=== PATIENT | male | born 1980 | race Caucasian/White ===

== ENCOUNTER 2021-12-27 12:41 | Emergency (ER) | payer OTHER, SELFPAY ==
[2021-12-27 13:05] VITALS: BP 155/103; PULSE 97; RESP 12; TEMP 36.6; O2SAT 100
[2021-12-27 13:58] LABS: Basophils Percent Auto 0.2 % (0.2-1.2); Eosinophils Absolute Auto 0.5 K/mm3 (0-0.3); Eosinophils Percent Auto 5.7 % (0-4.4); Hematocrit 45.4 % (42.0-52.0); Hemoglobin 14.7 g/dL (14.0-18.0); Immature Granulocyte Absolute 0.02 K/mm3 (0.00-0.031); Immature Granulocyte Percent A 0.2 % (0-0.5); Lymphocytes Absolute Auto 3.09 K/mm3 (0.9-3.2); Lymphocytes Percent Auto 35.3 % (18.3-44.2); Mean Corpuscular HGB Conc 32.4 g/dl (32-36); Mean Corpuscular Hemoglobin 27.8 pg (26-34); Mean Platelet Volume 9.3 fl (7.4-10.4); Monocytes Absolute Auto 0.7 K/mm3 (0.1-0.6); Monocytes Percent Auto 7.6 % (2.6-8.5); Neutrophils Absolute Auto 4.5 K/mm3 (1.3-6.7); Platelet Count Result 439 k/mm3 (150-375); Red Blood Count 5.28 M/mm3 (4.6-6.20); Red Cell Distribution Width 13.7 % (11.5-14.5); White Blood Count 8.8 K/mm3 (4.5-10.0)
[2021-12-27 14:14] LABS: Lactic Acid Reflex 1.4 mmol/L (0.7-2.0)
[2021-12-27 14:15] LABS: Alanine Aminotransferase 53 U/L (6-50); Albumin Level 5.3 g/dL (3.5-5.1); Alkaline Phosphatase 86 U/L (38-126); Anion Gap 11 mmol/L (8-16); Aspartate Amino Transferase 30 U/L (17-59); Bilirubin,Total 0.5 mg/dL (0.2-1.3); Blood Urea Nitrogen 13 mg/dL (9-20); CRP < 0.5 mg/dL (<1.0); Calcium 9.7 mg/dL (8.4-10.2); Carbon Dioxide 27 mmol/L (22-30); Chloride 103 mmol/L (98-107); Estimated CRCL calculation 82 ml/min; Estimated Glomerular Filt Rate > 60; Glucose 106 mg/dL (65-110); Potassium 4.2 mmol/L (3.4-5.0); Sodium 141 mmol/L (137-145)
[2021-12-27] MEDS: SODIUM CHLORIDE 0.9% IV 100 ML (14:24)
[2021-12-27] MEDS: ceFAZolin SODIUM 1 GM VIAL IV PUSH (14:24)
--- NOTE | 2021-12-27 14:52 | ED.SKABFB ---
HPI - Skin/Abscess/Foreign Bdy General Chief complaint: Skin/Abscess/Foreign Body Stated complaint: Left Leg, Bug Bite Time Seen by Provider: 12/27/21 13:17 Source: patient and RN notes reviewed Mode of arrival: ambulatory Limitations: no limitations History of Present Illness HPI narrative: This is a 41 year old male who presents for evaluation of left leg redness. PAtient noticed itching on back of his left leg on Friday. He noticed a wound with redness and assumed it was an insect bite. Yesterday his redness worsened and he noticed streak going up his left leg. His PCP started him on bactrim yesterday afternoon. He states he noticed that area of redness has increased so he was told to come to ER. He denies nausea, vomiting, fever or chills. He denies chest pain or shortness of breath . Related Data Allergies Allergy/AdvReac Type Severity Reaction Status Date / Time Penicillins Allergy Unknown Unknown Verified 12/27/21 12:23 Review of Systems Review of Systems: All systems reviewed & are unremarkable except as noted in HPI and below Constitutional: Constitutional: Denies chills, Denies fatigue and Denies fever(s) Cardiovascular: Cardiovascular: Denies chest pain and Denies rapid heart rate Respiratory: Respiratory: Denies chest congestion, Denies cough and Denies dyspnea Gastrointestinal: Gastrointestinal: Denies abdominal pain, Denies nausea and Denies vomiting Musculoskeletal: Musculoskeletal: Reports no additional musculoskeletal complaints, Denies myalgias and Denies muscle cramps Integumentary/Breasts: Skin/Breast: Reports erythema and Reports rash PMFSH Past Medical History Medical History (Updated 12/27/21 @ 15:09 by Rach Ward MD) Chronic back pain HLD (hyperlipidemia) Family History Family History Father Diabetes mellitus Social History Social History Second hand tobacco smoke exposure: Yes Alcohol intake: current Drinks per week: 2 Alcohol use details: weekly Substance use: never Substance use type: does not use Exam Narrative: GENERAL: Well-appearing, well-nourished, and in no acute distress. HEAD: Normocephalic, atraumatic EYES: EOMI, conjunctiva clear without discharge T RESPIRATORY: No respiratory distress, Respirations non-labored, EXTREMITIES: No edema, normal strength with full range of motion. SKIN: Warm, dry, left posterior thigh with 6 cm area of erythema with left medial thigh lymphangitic streaking, no groin lymphadenopathy. NEURO: Alert and oriented x3. CN 2-12 grossly intact. No focal deficits. PSYCH: Normal mood and affect. Const: General: no acute distress and alert Course Reevaluation(s) Reevaluation #1: Patient has no complaints. He was given dose of ancef IV. labs are unremarkable. I spoke with Dr. Irvin germain's PA. She agrees with discharging on keflex with continued bactrim . Date: 12/27/21 Time: 15:07 Vital Signs Vital signs: Vital Signs Temperature 97.8 F 12/27/21 13:05 Pulse Rate 97 12/27/21 13:05 Respiratory Rate 12 12/27/21 13:05 Blood Pressure 155/103 H 12/27/21 13:05 Pulse Oximetry 100 12/27/21 13:05 Oxygen Delivery Room Air 12/27/21 13:05 Temperature 97.8 F 12/27/21 13:05 Pulse Rate 66 12/27/21 15:20 Respiratory Rate 18 12/27/21 15:20 Blood Pressure 132/70 12/27/21 15:20 Pulse Oximetry 99 12/27/21 15:20 Oxygen Delivery Room Air 12/27/21 13:05 MDM - Skin/Abscess/Foreign Bdy Lab Data Attestation: I reviewed the patient's lab results. Result diagrams: 12/27/21 13:47 12/27/21 13:47 Labs: Lab Results 12/27/21 12/27/21 12/27/21 Range/Units 13:47 13:47 13:47 WBC 8.8 (4.5-10.0) K/mm3 RBC 5.28 (4.6-6.20) M/mm3 Hgb 14.7 (14.0-18.0) g/dL Hct 45.4 (42.0-52.0) % MCV 86.0 (80-100)
[2021-12-27 15:20] VITALS: BP 132/70; PULSE 66; RESP 18; O2SAT 99
== END 2021-12-27 15:22 | disposition home or self-care (01) ==
PROVIDERS: Emergency Provider General Practice; PCP Family Medicine
DX: L03.116 Cellulitis of left lower limb (principal); E78.5 Hyperlipidemia, unspecified; Z77.22 Contact with and (suspected) exposure to environmental tobacco smoke (acute) (chronic)
CPT/HCPCS: 36415; 80053; 83605; 85025; 86140; 87040; 96361; 96374; 99284; J0690

== ENCOUNTER 2022-12-18 08:49 | Emergency (ER) | payer OTHER, SELFPAY ==
--- NOTE | ~2022-12-18 | US_ITS ---
EXAMINATION: US venous doppler LE RT DATE: 12/18/2022 09:33 INDICATION: Right lower limb pain. TECHNIQUE: Grayscale ultrasound images without and with compression and Doppler ultrasound images of the right lower extremity veins were obtained. COMPARISON: None. FINDINGS: The visualized portions of right common femoral vein, profunda (deep) femoral vein, femoral vein, pop liteal vein, peroneal veins, posterior tibial veins, and greater saphenous vein outflow are patent. IMPRESSION: 1. No deep venous thrombosis. Reviewed, dictated and finalized at location A.
--- NOTE | ~2022-12-18 | XR_ITS ---
EXAMINATION: XR hip RT 2V w AP pelvis DATE: 12/18/2022 09:37 INDICATION: Right leg pain. TECHNIQUE: An anteroposterior view of the pelvis and 2 views of right hip were obtained. COMPARISON: None. FINDINGS: Bone alignment is normal. No fracture. The hip joint spaces are normal. There is mild lumba r spondylosis. IMPRESSION: 1. Normal hips. Reviewed, dictated and finalized at location A. IMPRESSION: 1. Normal hips.
[2022-12-18 08:55] VITALS: BP 158/92; PULSE 92; RESP 18; TEMP 36.7; O2SAT 100
[2022-12-18 09:12] VITALS: BP 166/95; PULSE 78; RESP 18; TEMP 36.7; O2SAT 100
--- NOTE | 2022-12-18 09:17 | PC.NURSE ---
Pt to u/s via stretcher at this time.
--- NOTE | 2022-12-18 09:33 | ED.GENADULT ---
HPI - General Adult General Chief complaint: Extremity Injury, Lower Stated complaint: right leg pain Time Seen by Provider: 12/18/22 08:52 History of Present Illness HPI narrative: 42-year-old male presented emergency department for evaluation of right leg pain. Patient states the pain started bothering him a few days ago. Patient has been taking medications, pain control. Patient describes right buttock pain that does radiate down his right leg. Related Data Allergies Allergy/AdvReac Type Severity Reaction Status Date / Time Penicillins Allergy Unknown Unknown Verified 12/18/22 09:08 Review of Systems Review of Systems: All systems reviewed & are unremarkable except as noted in HPI and below PMFSH Past Medical History Medical History (Updated 12/18/22 @ 10:21 by Audi Napier MD) Chronic back pain HLD (hyperlipidemia) Family History Family History Father Diabetes mellitus Social History Social History (Updated 10/25/22 @ 10:56 by Ann Marie Keita CMA) Smoking status: Never smoker Second hand tobacco smoke exposure: Yes Alcohol intake: current Drinks per week: 2 Alcohol use details: weekly Substance use: never Substance use type: does not use Lack of Transportation: No Lack of Food: Never True Current Housing: I Have Housing Concerned About Future Housing: No Difficulty Paying Gas/Electric Bills: No Difficulty Paying for Meds: No Currently Unemployed: No Education: Bachelor's Degree Difficulty w/ Childcare or Family Care: No Gender identity (if verbalized by the patient): Male Spiritual care concerns: No Agree to blood products: Yes Exam Narrative: APPEARANCE: Well appearing, no pain, no distress, well-nourished. HEAD: normocephalic, atraumatic. EYES: PERRLA/EOMI, conjunctivae clear. NOSE: Normal no drainage NECK: Supple. No adenopathy, no masses. RESPIRATORY: Airway patent, respirations nonlabored. Clear to auscultation bilaterally, no rales, rhonchi, wheezing. CARDIOVASCULAR: Regular rate and rhythm without murmurs rubs or gallops. ABDOMINAL: Soft, nontender, nondistended, normal bowel sounds MUSCULOSKELETAL: Lower back and right buttock tenderness to palpation NEURO: Alert. Cranial nerves II through XII intact. Good gait. Good coordination SKIN: Warm, dry. Normal Color PSYCHIATRIC: Normal affect/mood. Course Course Emergency Course: 42-year-old male presented emerged department for evaluation of right hip and leg pain. Ultrasound was negative for DVT and hip x-ray showed no acute fracture or dislocation. Patient did have some improvement with medication for pain control. When patient attempted to ambulate initially he had worsening pain and patient did stay for additional pain medications. Patient and family were updated on the results of the work-up and plan for treatment for home and the importance of close follow-up with the primary care physician. Vital Signs Vital signs: Vital Signs Temperature 98.0 F 12/18/22 08:55 Pulse Rate 92 12/18/22 08:55 Respiratory Rate 18 12/18/22 08:55 Blood Pressure 158/92 H 12/18/22 08:55 Pulse Oximetry 100 12/18/22 08:55 Oxygen Delivery Room Air 12/18/22 08:55 Temperature 98.0 F 12/18/22 12:37 Pulse Rate 76 12/18/22 12:37 Respiratory Rate 18 12/18/22 12:37 Blood Pressure 163/93 H 12/18/22 12:37 Pulse Oximetry 100 12/18/22 12:37 Oxygen Delivery Room Air 12/18/22 08:55 Medical Decision Making Differential Diagnosis Differential Diagnosis: Sciatica, DVT, cellulitis, muscular strain Vital Signs Vital Signs: Vital Signs Temperature 98.0 F 12/18/22 08:55 Pulse Rate 92 12/18/22 08:55 Respiratory Rate 18 12/18/22 08:55 Blood Pressure 158/92 H 12/18/22 08:55 Pulse Oximetry 100 12/18/22 08:55 Oxygen Delivery Room Air 12/18/22 08:55 Temperature 98.0 F 12/18/22 12:37 Pulse Ra
[2022-12-18] MEDS: KETOROLAC 30 MG/ML VIAL (*BKC) IM (09:43)
[2022-12-18 10:49] VITALS: BP 152/87; PULSE 87; RESP 17; O2SAT 97
--- NOTE | 2022-12-18 11:01 | PC.NURSE ---
Pt assisted back to stretcher due to uncontrollable pain. Per EDP DR MCMAHAN, give 1 MG Dilaudid IM and pt can depart as planned when pain is in control.
[2022-12-18] MEDS: HYDROmorphone HCL INJ (*CRX) 1 MG/ML SYR IM (11:14)
[2022-12-18 12:37] VITALS: BP 163/93; PULSE 76; RESP 18; TEMP 36.7; O2SAT 100
== END 2022-12-18 12:50 | disposition home or self-care (01) ==
PROVIDERS: Emergency Provider Emergency Medicine; PCP Family Medicine
DX: M54.31 Sciatica, right side (principal); E78.5 Hyperlipidemia, unspecified
CPT/HCPCS: 73502; 93971; 96372; 99284; J1100; J1170; J1885

== ENCOUNTER 2022-12-30 14:06 | Outpatient (CLI) | payer OTHER, SELFPAY ==
--- NOTE | ~2022-12-30 | XR_ITS ---
Lumbosacral Spine: AP and lateral views Clinical History: Pain Findings: The normal lordotic curve is maintained. The vertebral bodies and posterior elements are i ntact. There is moderate degenerative disc narrowing at L4-L5. There is mild to moderate facet arthro leila at L4-L5 and L5-S1. The sacroiliac joints are normally outlined. Impression: Mild degenerative spondylosis at the lower lumbar spine, as detailed above. Reviewed, dictated and finalized at location . Impression: Mild degenerative spondylosis at the lower lumbar spine, as detailed above.
== END 2022-12-30 14:07 ==
LOC: MICIMG 14:09
PROVIDERS: PCP Family Medicine; Visit Provider Family Medicine
DX: M54.30 Sciatica, unspecified side (principal); M47.816 Spondylosis without myelopathy or radiculopathy, lumbar region
CPT/HCPCS: 72100

== ENCOUNTER 2023-01-20 07:50 | Day surgery (SDC) | payer OTHER, SELFPAY ==
[2022-11-29 14:26] VITALS: BMI 29.9
[2023-01-09 09:10] VITALS: BMI 28.8
--- NOTE | 2023-01-18 11:06 | WPDANESEPPF ---
Anes - Initial Pre Proc Eval Procedure: Operation Date: 01/20/23 09:30 Proposed Procedures p Diagnostic Colonoscopy - Иван Collins MD Date/Time: 01/18/23 11:06 Surgeon: Иван Collins MD Pre Op Diagnosis: rectal bleeding Patient Data Age: 42 Gender: M Height: 1.73 m Weight: 86 kg Allergies Allergy/AdvReac Type Severity Reaction Status Date / Time Penicillins Allergy Unknown Unknown Verified 01/20/23 08:18 Home Medications Medication Instructions Recorded Confirmed Type sodium,potassium,mag sulfates 17.5 See Rx Instructions PO .COMPLEX 11/29/22 12/30/22 Rx gram-3.13 gram-1.6 gram oral soln #354 mL (Suprep Bowel Prep Kit) cyclobenzaprine 10 mg tablet 10 mg PO BID PRN muscle spasm #30 12/30/22 01/20/23 Rx tabs Patient hx anesthesia problems: none Family hx anesthesia problems: none Results Review: All pre-operative results and documents have been reviewed as part of the pre-operative evaluation. COUNT INCLUDES THE [facility] Past Medical History Medical History (Updated 01/20/23 @ 08:44 by Иван Collins MD) Chronic back pain HLD (hyperlipidemia) Family History Family History Father Diabetes mellitus Social History Social History (Updated 01/20/23 @ 09:44 by Henrry Germain DO) Smoking status: Never smoker Second hand tobacco smoke exposure: Yes Alcohol intake: current Drinks per week: 2 Alcohol use details: weekly Substance use: current Substance use type: marijuana Other substance usage details: occasional Lack of Transportation: No Lack of Food: Never True Current Housing: I Have Housing Concerned About Future Housing: No Difficulty Paying Gas/Electric Bills: No Difficulty Paying for Meds: No Currently Unemployed: No Education: Bachelor's Degree Difficulty w/ Childcare or Family Care: No Living arrangements: with family Gender identity (if verbalized by the patient): Male Spiritual care concerns: No Agree to blood products: Yes Anes - Eval Final PreProcedure Day of Procedure 01/18/23 11:06 Patient weight: overweight Heart: regular rate and rhythm Lungs: clear to auscultation Airway: Mallampati scale class II Neurological: alert and oriented Last oral intake: >/= 8 hours ASA classification: II Emergent: no Anesthetic plan: proceed Anesthesia type and monitoring: general GIVS and standard monitoring Results Review: All pre-operative results and documents have been reviewed as part of the pre-operative evaluation. Informed Consent: The patient's anesthetic plan and its attendant risks and benefits were discussed with the patient/family/POA. Questions were solicited and answers provided to the satisfaction of the patient/family/POA.
[2023-01-20 08:23] VITALS: BMI 28.5
[2023-01-20 08:28] VITALS: BP 151/104; PULSE 104; RESP 18; TEMP 36.8; O2SAT 99
[2023-01-20] MEDS: LACTATED RINGERS 1,000 ML 150 ML IV CONT (08:38)
--- NOTE | 2023-01-20 08:42 | PM.HPGS ---
History of Present Illness History of Present Illness Consent: Risks, benefits, and alternatives have been discussed and questions answered. Patient agrees to proceed with procedure. Chief complaint: rectal bleeding Narrative: Ollie Adair is a 42 year old male Presents for colonoscopy. Patient reports over the last year he has had intermittent bright red blood per rectum with wiping. This does not occur all the time but occurs intermittently. Patient denies any associated pain. He has had no weight loss. Bowel habits are reported to be normal brown stool. Family history noncontributory. Review of Systems Review of Systems: Review of Systems noncontributory. [facility] Past Medical History Medical History (Updated 01/20/23 @ 08:44 by Иван Collins MD) Chronic back pain HLD (hyperlipidemia) Family History Family History Father Diabetes mellitus Social History Social History Smoking status: Never smoker Second hand tobacco smoke exposure: Yes Alcohol intake: current Drinks per week: 2 Alcohol use details: weekly Substance use: never Substance use type: does not use Lack of Transportation: No Lack of Food: Never True Current Housing: I Have Housing Concerned About Future Housing: No Difficulty Paying Gas/Electric Bills: No Difficulty Paying for Meds: No Currently Unemployed: No Education: Bachelor's Degree Difficulty w/ Childcare or Family Care: No Living arrangements: with family Gender identity (if verbalized by the patient): Male Spiritual care concerns: No Agree to blood products: Yes Meds Home Medications and Allergies Home Medications Medication Instructions Recorded Confirmed Type sodium,potassium,mag sulfates 17.5 See Rx Instructions PO .COMPLEX 11/29/22 12/30/22 Rx gram-3.13 gram-1.6 gram oral soln #354 mL (Suprep Bowel Prep Kit) cyclobenzaprine 10 mg tablet 10 mg PO BID PRN muscle spasm #30 12/30/22 01/20/23 Rx tabs Allergies Allergy/AdvReac Type Severity Reaction Status Date / Time Penicillins Allergy Unknown Unknown Verified 01/20/23 08:18 Vital Signs Vital Signs - 24 hr 01/20/23 08:28 Temperature 98.2 F Pulse Rate 104 H Respiratory Rate 18 Blood Pressure 151/104 H Pulse Oximetry 99 Oxygen Delivery Room Air Exam Narrative: Physical exam reveals patient to be alert. Stable. HEENT exam is unremarkable. Patient is anicteric. Lungs are clear to auscultation and heart is without murmur or extra sounds. Abdomen sounds are present soft nontender locally. Digital external rectal exam is normal. Assessment and Plan Assessment and plan (1) Rectal bleeding: Code(s): K62.5 - Hemorrhage of anus and rectum Status: Acute Assessment and Plan: Patient reports intermittent rectal bleeding over the last year. This is most consistent with hemorrhoidal bleeding. Colonoscopy requested will be performed. High-fiber diet advised. If bleeding worsens then surgical referral for additional therapy may really warranted.
[2023-01-20 09:35] VITALS: BP 126/89; PULSE 104; RESP 18; O2SAT 100
[2023-01-20 09:45] VITALS: BP 131/90; PULSE 96; RESP 16; O2SAT 98
[2023-01-20 09:55] VITALS: BP 128/97; PULSE 78; RESP 16; O2SAT 100
--- NOTE | 2023-01-20 12:33 | WPDANESPN ---
Anes - Prog Note Post-Op Date/Time: 01/20/23 12:33 Cardiovascular status: normal Respiratory status: normal Airway patency: baseline Mental status: baseline Post-Op hydration status: normal Vital Signs: Last Vital Signs Temp 36.8 C 01/20/23 08:28 Pulse 78 01/20/23 09:55 Resp 16 01/20/23 09:55 BP 128/97 H 01/20/23 09:55 Pulse Ox 100 01/20/23 09:55 O2 Del Method Room Air 01/20/23 09:55 Pain Score (VAS): 0 I/O: Intake & Output 01/19/23 01/20/23 01/20/23 23:59 07:59 15:59 Intake Total 400 Balance 400 Post-procedural complaints: none Patient Feedback: Patient satisfied with anesthetic care. Other Findings: Patient vital signs back to baseline. Patient denies nausea and vomiting. Patient's pain under control. Patient OK for discharge.
== END 2023-01-20 10:10 | disposition home or self-care (01) ==
PROVIDERS: PCP Family Medicine; Visit Provider Internal Medicine Gastroenterology
PROC: 0DJD8ZZ Inspection of Lower Intestinal Tract, Via Natural or Artificial Opening Endoscopic (ICD-10-PCS; CPT 45378; principal; 2023-01-20 09:30)
DX: Z12.11 Encounter for screening for malignant neoplasm of colon (principal); D12.3 Benign neoplasm of transverse colon; K64.8 Other hemorrhoids
CPT/HCPCS: 45385

== ENCOUNTER 2023-01-20 08:00 | Outpatient (NON) | payer OTHER, SELFPAY | END 2023-01-20 08:01 | disposition home or self-care (01) | PROVIDERS: PCP Family Medicine; Visit Provider Internal Medicine Gastroenterology | DX: D12.3 Benign neoplasm of transverse colon (principal) | CPT/HCPCS: 88305 ==

== ENCOUNTER 2024-10-18 13:20 | Emergency (ER) | payer OTHER, SELFPAY ==
--- NOTE | ~2024-10-18 | XR_ITS ---
EXAMINATION: XR chest 2V 10/18/2024 14:13 INDICATION: Chest palpitations for one week PROCEDURE: 2 view chest COMPARISON: No prior studies for comparison. FINDINGS: The lungs are clear. The cardiomediastinal silhouette is within normal limits. There are no pleural effusions. There is no pneumothorax suspected. IMPRESSION: 1: NO ACUTE CARDIOPULMONARY DISEASE. Reviewed, dictated and finalized at location A.
--- NOTE | 2024-10-18 13:20 | ECG_ITS ---
Test Date: 2024-10-18 13:25:45 Measurements Intervals [place] Rate: 106 P: 57 AL: 149 QRS: 3 QRSD: 87 T: 45 QT: 312 QTc: 416 Interpretive Statements SINUS TACHYCARDIA OTHERWISE NORMAL ECG No previous ECG available for comparison Electronically Signed On 10-18-2024 15:49:24 CDT by Ollie Irwin M.D.
[2024-10-18 13:21] VITALS: BP 201/99; PULSE 114; RESP 18; TEMP 36.6; O2SAT 100
[2024-10-18 13:41] LABS: Basophils Absolute Auto 0.1 K/mm3 (0.0-0.1); Basophils Percent Auto 0.5 % (0.2-1.2); Eosinophils Absolute Auto 0.1 K/mm3 (0-0.3); Eosinophils Percent Auto 0.6 % (0-4.4); Hematocrit 41.2 % (42.0-52.0); Hemoglobin 13.8 g/dL (14.0-18.0); Immature Granulocyte Absolute 0.01 K/mm3 (0.00-0.031); Immature Granulocyte Percent A 0.1 % (0-0.5); Lymphocytes Percent Auto 48.1 % (18.3-44.2); Mean Corpuscular HGB Conc 33.5 g/dl (32-36); Mean Corpuscular Hemoglobin 29.1 pg (26-34); Mean Corpuscular Volume 86.7 fl (80-100); Mean Platelet Volume 9.5 fl (7.4-10.4); Monocytes Absolute Auto 0.6 K/mm3 (0.1-0.6); Monocytes Percent Auto 6.1 % (2.6-8.5); Neutrophils Absolute Auto 4.4 K/mm3 (1.3-6.7); Neutrophils Percent Auto 44.6 % (45.5-73.1); Platelet Count Result 398 k/mm3 (150-375); Red Blood Count 4.75 M/mm3 (4.6-6.20); Red Cell Distribution Width 13.2 % (11.5-14.5)
[2024-10-18 13:57] LABS: Alanine Aminotransferase 35 U/L (6-50); Albumin Level 5.2 g/dL (3.5-5.1); Alkaline Phosphatase 61 U/L (38-126); Anion Gap 12 mmol/L (4-12); Aspartate Amino Transferase 27 U/L (17-59); Bilirubin,Total 0.4 mg/dL (0.2-1.3); Blood Urea Nitrogen 16 mg/dL (9-20); Calcium 9.4 mg/dL (8.4-10.2); Carbon Dioxide 28 mmol/L (22-30); Chloride 101 mmol/L (98-107); Estimated CRCL calculation 78 ml/min; Estimated Glomerular Filt Rate > 60; Glucose 120 mg/dL (65-110); Lipase 517 U/L (23-300); Potassium 3.4 mmol/L (3.4-5.0); Sodium 141 mmol/L (137-145)
[2024-10-18 13:58] LABS: Prothrombin Time 13.3 Seconds (11.1-14.7)
[2024-10-18 13:59] LABS: Partial Thromboplastin Time 31.9 Seconds (22.3-36.8)
[2024-10-18 14:07] LABS: Troponin I < 0.012 ng/mL (0.000-0.034)
--- NOTE | 2024-10-18 14:22 | ED_ITS ---
HPI - Arrhythmia/Palpitations General Chief Complaint: Arrhythmia/Palpitations <Cristal Fofana PA-C - Last Filed: 10/18/24 17:29> Stated Complaint: palpitations <Cristal Fofana PA-C - Last Filed: 10/18/24 17:29> Time Seen by Provider: 10/18/24 14:22 <Cristal Fofana PA-C - Last Filed: 10/18/24 17:29> Focused HPI: This is a 44 year old male that presents to the ER for heart palpitations. Feels like his heart is skipping a beat. Denies chest pain, shortness of breath. He is not currently on any medications. No history of hypertension. GENERAL: Well-appearing, well-nourished, and in no acute distress. HEAD: Normocephalic, atraumatic. CHEST: Clear to auscultation. ?No respiratory distress. HEART: Regular rate and rhythm.? NEURO: ?Alert and oriented x3. Patient screened in triage and initial orders placed.? ?Additional care and disposition to be based upon?diagnostic testing and treatment. <Cristal Fofana PA-C - Last Filed: 10/18/24 17:29> History of Present Illness HPI narrative: Agree with HPI. Occasionally feeling his heart skip a beat. No lightheadedness or syncope. No chest pain or chest pressure. He is not on any rate control medications. He does drink coffee a couple times a day. Normal sleep habits. Has had increased protein intake. <Alireza Rocha MD - Last Filed: 10/18/24 16:47> Related Data Allergies/Adverse Reactions: Allergies Allergy/AdvReac Type Severity Reaction Status Date / Time Penicillins Allergy Unknown Unknown Verified 10/18/24 15:02 <Cristal Fofana PA-C - Last Filed: 10/18/24 17:29> Review of Systems 2 Review of Systems: All systems reviewed & are unremarkable except as noted in HPI and below <Alireza Rocha MD - Last Filed: 10/18/24 16:47> Constitutional: Constitutional: Reports no additional constitutional complaints <Alireza Rocha MD - Last Filed: 10/18/24 16:47> ENT: Reports system reviewed and no additional complaints, except as documented <Alireza Rocha MD - Last Filed: 10/18/24 16:47> Cardiovascular: Cardiovascular: Reports no additional cardiovascular complaints <Alireza Rocha MD - Last Filed: 10/18/24 16:47> Respiratory: Respiratory: Reports no additional respiratory complaints < Alireza Rocha MD - Last Filed: 10/18/24 16:47> PMFSH Past Medical History Medical History: Medical History (Updated 10/18/24 @ 16:46 by Alireza Rocha MD) HLD (hyperlipidemia) Chronic back pain <Cristal Fofana PA-C - Last Filed: 10/18/24 17:29> Family History Family History: Family History Father Diabetes mellitus <Cristal Fofana PA-C - Last Filed: 10/18/24 17:29> Social History Social History: Social History (Updated 01/20/23 @ 09:44 by Henrry Germain DO) Smoking status: Never smoker Second hand tobacco smoke exposure: Yes Alcohol intake: current Drinks per week: 2 Alcohol use details: weekly Substance use: current Substance use type: marijuana Other substance usage details: occasional Lack of Transportation: No Lack of Food: Never True Current Housing: I Have Housing Concerned About Future Housing: No Difficulty Paying Gas/Electric Bills: No Difficulty Paying for Meds: No Currently Unemployed: No Education: Bachelor's Degree Difficulty w/ Childcare or Family Care: No Living arrangements: with family Gender identity (if verbalized by the patient): Male Spiritual care concerns: No Agree to blood products: Yes <Cristal Fofana PA-C - Last Filed: 10/18/24 17:29> Exam 2 Narrative: GENERAL: Well-appearing, well-nourished, and in no acute distress. HEAD: Normocephalic, atraumatic. ENT: Mucous membranes moist. CHEST: Clear to auscultation. No respiratory distress. HEART: Regular rate and rhythm. Normal peripheral pulses. ABDOMEN: Soft, nontender, nondistended. NEURO: Alert and oriented x3. PSYCH: Normal mood and affect. <Alireza Rocha MD - Last Filed: 10/18/24 16:47> Course Course Emergency Course: PVCs on conveyor monitor. Appropriate for discharge home. Has follow-up with PCP on Friday. <Alireza Rocha MD - Last Filed: 10/18/24 16:47> Vital Signs Vital signs: Vital Signs Temperature 97.9 F 10/18/24 13:21 Pulse Rate 114 H 10/18/24 13:21 Respiratory Rate 18 10/18/24 13:21 Blood Pressure 201/99 H 10/18/24 13:21 Pulse Oximetry 100 10/18/24 13:21 Oxygen Delivery Room Air 10/18/24 13:21 Temperature 97.9 F 10/18/24 13:21 Pulse Rate 880 H 10/18/24 17:25 Respiratory Rate 14 10/18/24 17:25 Blood Pressure 138/86 10/18/24 17:25 Pulse Oximetry 98 10/18/24 17:25 Oxygen Delivery Room Air 10/18/24 13:21 <Cristal Fofana PA-C - Last Filed: 10/18/24 17:29> Vital Signs Temperature 97.9 F 10/18/24 13:21 Pulse Rate 114 H 10/18/24 13:21 Respiratory Rate 18 10/18/24 13:21 Blood Pressure 201/99 H 10/18/24 13:21 Pulse Oximetry 100 10/18/24 13:21 Oxygen Delivery Room Air 10/18/24 13:21 Temperature 97.9 F 10/18/24 13:21 Pulse Rate 880 H 10/18/24 17:25 Respiratory Rate 14 10/18/24 17:25 Blood Pressure 138/86 10/18/24 17:25 Pulse Oximetry 98 10/18/24 17:25 Oxygen Delivery Room Air 10/18/24 13:21 <Alireza Rocha MD - Last Filed: 10/18/24 16:47> MDM - Arrhythmia/Palpitations Lab Data Result diagrams: 10/18/24 13:29 10/18/24 13:29 <Cristal Fofana PA-C - Last Filed: 10/18/24 17:29> Labs: Lab Results 10/18/24 10/18/24 Range/Units 13:29 16:29 WBC 10.0 (4.5-10.0) K/mm3 RBC 4.75 (4.6-6.20) M/mm3 Hgb 13.8 L (14.0-18.0) g/dL Hct 41.2 L (42.0-52.0) % MCV 86.7 (80-100) fl MCH 29.1 (26-34) pg MCHC 33.5 (32-36) g/dl RDW 13.2 (11.5-14.5) % Plt Count 398 H (150-375) k/mm3 MPV 9.5 (7.4-10.4) fl Immature Gran % (Auto) 0.1 (0-0.5) % Neut % (Auto) 44.6 L (45.5-73.1) % Lymph % (Auto) 48.1 H (18.3-44.2) % [place] % (Auto) 6.1 (2.6-8.5) % Eos % (Auto) 0.6 (0-4.4) % Baso % (Auto) 0.5 (0.2-1.2) % Lymph # (Auto) 4.80 H (0.9-3.2) K/mm3 [place] # (Auto) 0.6 (0.1-0.6) K/mm3 Eos # (Auto) 0.1 (0-0.3) K/mm3 Baso # (Auto) 0.1 (0.0-0.1) K/mm3 Abs Immat Gran (auto) 0.01 (0.00-0.031) K/mm3 Absolute Neuts (auto) 4.4 (1.3-6.7) K/mm3 Absolute Nucleated RBC 0.000 (0.0-0.012) K/mm3 Nucleated RBC % 0.0 (0.0-0.2) % PT 13.3 (11.1-14.7) Seconds INR 1.0 APTT 31.9 (22.3-36.8) Seconds Sodium 141 (137-145) mmol/L Potassium 3.4 (3.4-5.0) mmol/L Chloride 101 (98-107) mmol/L Carbon Dioxide 28 (22-30) mmol/L Anion Gap 12 (4-12) mmol/L BUN 16 (9-20) mg/dL Creatinine 1.03 (0.7-1.3) mg/dL Estim Creat Clear Calc 78 ml/min Estimated GFR > 60 (59 - ) Glucose 120 H (65-110) mg/dL Calcium 9.4 (8.4-10.2) mg/dL Magnesium 2.2 (1.6-2.3) mg/dL Total Bilirubin 0.4 (0.2-1.3) mg/dL AST 27 (17-59) U/L ALT 35 (6-50) U/L Alkaline Phosphatase 61 (38-126) U/L Troponin I < 0.012 < 0.012 (0.000-0.034) ng/mL Total Protein 9.0 H (6.3-8.2) g/dL Albumin 5.2 H (3.5-5.1) g/dL Lipase 517 H (23-300) U/L <Cristal Fofana PA-C - Last Filed: 10/18/24 17:29> Lab Results 10/18/24 10/18/24 Range/Units 13:29 16:29 WBC 10.0 (4.5-10.0) K/mm3 RBC 4.75 (4.6-6.20) M/mm3 Hgb 13.8 L (14.0-18.0) g/dL Hct 41.2 L (42.0-52.0) % MCV 86.7 (80-100) fl MCH 29.1 (26-34) pg MCHC 33.5 (32-36) g/dl RDW 13.2 (11.5-14.5) % Plt Count 398 H (150-375) k/mm3 MPV 9.5 (7.4-10.4) fl Immature Gran % (Auto) 0.1 (0-0.5) % Neut % (Auto) 44.6 L (45.5-73.1) % Lymph % (Auto) 48.1 H (18.3-44.2) % [place] % (Auto) 6.1 (2.6-8.5) % Eos % (Auto) 0.6 (0-4.4) % Baso % (Auto) 0.5 (0.2-1.2) % Lymph # (Auto) 4.80 H (0.9-3.2) K/mm3 [place] # (Auto) 0.6 (0.1-0.6) K/mm3 Eos # (Auto) 0.1 (0-0.3) K/mm3 Baso # (Auto) 0.1 (0.0-0.1) K/mm3 Abs Immat Gran (auto) 0.01 (0.00-0.031) K/mm3 Absolute Neuts (auto) 4.4 (1.3-6.7) K/mm3 Absolute Nucleated RBC 0.000 (0.0-0.012) K/mm3 Nucleated RBC % 0.0 (0.0-0.2) % PT 13.3 (11.1-14.7) Seconds INR 1.0 APTT 31.9 (22.3-36.8) Seconds Sodium 141 (137-145) mmol/L Potassium 3.4 (3.4-5.0) mmol/L Chloride 101 (98-107) mmol/L Carbon Dioxide 28 (22-30) mmol/L Anion Gap 12 (4-12) mmol/L BUN 16 (9-20) mg/dL Creatinine 1.03 (0.7-1.3) mg/dL Estim Creat Clear Calc 78 ml/min Estimated GFR > 60 (59 - ) Glucose 120 H (65-110) mg/dL Calcium 9.4 (8.4-10.2) mg/dL Magnesium 2.2 (1.6-2.3) mg/dL Total Bilirubin 0.4 (0.2-1.3) mg/dL AST 27 (17-59) U/L ALT 35 (6-50) U/L Alkaline Phosphatase 61 (38-126) U/L Troponin I < 0.012 < 0.012 (0.000-0.034) ng/mL Total Protein 9.0 H (6.3-8.2) g/dL Albumin 5.2 H (3.5-5.1) g/dL Lipase 517 H (23-300) U/L <Alireza Rocha MD - Last Filed: 10/18/24 16:47> Imaging Data Radiologist's impression: ITS Impressions Chest X-Ray 10/18/24 14:15 IMPRESSION: 1: NO ACUTE CARDIOPULMONARY DISEASE. <Alireza Rocha MD - Last Filed: 10/18/24 16:47> ECG Data EKG #1: ECG completion date: 10/18/24 <Alireza Rocha MD - Last Filed: 10/18/24 16:47> ECG completion time: 13:25 <Alireza Rocha MD - Last Filed: 10/18/24 16:47> EKG Interpretation: tachycardia (106), sinus rhythm, no ectopy, no ST changes, normal QT and NL axis <Alireza Rocha MD - Last Filed: 10/18/24 16:47> Discharge Plan Discharge Clinical Impression: PVC (premature ventricular contraction) <Cristal Fofana PA-C - Last Filed: 10/18/24 17:29> Patient Disposition: Home <Cristal Fofana PA-C - Last Filed: 10/18/24 17:29> Condition: Stable <Cristal Fofana PA-C - Last Filed: 10/18/24 17:29> Instructions: Premature Ventricular Contractions (ED) <Cristal Fofana PA-C - Last Filed: 10/18/24 17:29> Additional Instructions: Please return to the emergency department if you develop severe and persistent chest pain, difficulty breathing, dizziness, leg swelling or if you are coughing up blood as these can be signs of a medical emergency. Please call your doctor for a follow up appointment to determine the need for further testing. <Cristal Fofana PA-C - Last Filed: 10/18/24 17:29> Patient Language: Belarusian <Cristal Fofana PA-C - Last Filed: 10/18/24 17:29> Follow-up/Referrals: Corina Bryan MD [Primary Care Provider] - 3 Days <Cristal Fofana PA-C - Last Filed: 10/18/24 17:29>
[2024-10-18 15:17] VITALS: BP 147/89; PULSE 81; RESP 14; O2SAT 100
[2024-10-18 15:20] LABS: Magnesium 2.2 mg/dL (1.6-2.3)
[2024-10-18 15:25] VITALS: BP 147/89; PULSE 80; RESP 18; O2SAT 98
[2024-10-18 15:31] VITALS: BP 136/85; PULSE 79; RESP 11; O2SAT 98
[2024-10-18 16:01] VITALS: BP 141/98; PULSE 80; RESP 23; O2SAT 98
--- NOTE | 2024-10-18 16:40 | ECG_ITS ---
Test Date: 2024-10-18 16:43:40 Measurements Intervals [place] Rate: 72 P: 54 MO: 174 QRS: 5 QRSD: 90 T: 31 QT: 344 QTc: 376 Interpretive Statements SINUS RHYTHM Compared to ECG 10/18/2024 13:25:45 Sinus tachycardia no longer present Electronically Signed On 10-19-2024 14:15:16 CDT by Gena Toledo M.D.
[2024-10-18 16:55] LABS: Troponin I < 0.012 ng/mL (0.000-0.034)
[2024-10-18 17:25] VITALS: BP 138/86; PULSE 88; RESP 14; O2SAT 98
== END 2024-10-18 17:26 | disposition home or self-care (01) ==
PROVIDERS: Emergency Provider Emergency Medicine; PCP Family Medicine
DX: I49.3 Ventricular premature depolarization (principal); E78.5 Hyperlipidemia, unspecified; M54.9 Dorsalgia, unspecified; G89.29 Other chronic pain
CPT/HCPCS: 36415; 71046; 80053; 83690; 83735; 84484; 85025; 85610; 85730; 93005; 99284